=== PATIENT | male | born 1975 | race Caucasian/White ===

== ENCOUNTER 2024-06-04 20:53 | Emergency (ER) | payer OTHER, SELFPAY ==
[2024-06-04 20:55] VITALS: BP 180/110
[2024-06-04 21:13] LABS: % Basophils 0.2 % (0-2); % Eosinophils 2.4 % (0-6); % Immature Granulocytes 0.4 % (0-0.5); % Lymphocytes 19.5 % (20.5-51.1); % Monocytes 6.7 % (1.7-9.3); % Neutrophils 70.8 % (42.2-75.2); Absolute Eosinophils 0.3 10^3/uL (0-0.7); Absolute Monocytes 0.7 10^3/uL (0.1-0.6); Absolute Neutrophils 7.3 10^3/uL (1.4-6.5); Hematocrit 43.3 % (39.0-52.0); Hemoglobin 15.6 g/dL (13.0-18.0); Mean Corpuscular Hgb 32.5 pg (27.0-31.0); Mean Corpuscular Volume 90.2 fL (80.0-94.0); Mean Platelet Volume 9.7 fL (7.4-10.4); Nucleated Red Blood Cells % 0 % (-); Platelet Count 209 10^3/uL (130-400); Red Cell Dist. Width 12.8 % (11.5-14.5); White Blood Cell Count 10.3 10^3/uL (4.8-10.8)
[2024-06-04 21:30] LABS: ALT (SGPT) 43 U/L (0-50); AST (SGOT) 29 U/L (17-59); Albumin 4.8 g/dl (3.5-5.0); Alkaline Phosphatase 95 U/L (38-126); Blood Urea Nitrogen 10 mg/dl (9-20); Carbon Dioxide 28 mmol/L (22-30); Chloride 102 mmol/L (98-107); Glucose 107 mg/dl (70-99); Potassium 4.3 mmol/L (3.5-5.1); Sodium 142 mmol/L (135-145); Total Bilirubin 0.6 mg/dl (0.2-1.3); Total Protein 7.7 g/dl (6.3-8.2); eGFR > 60.00
[2024-06-04 21:31] LABS: Lipase 80 U/L (23-300)
[2024-06-04 21:38] LABS: Troponin I 0.026 ng/ml
--- NOTE | 2024-06-04 22:41 | ED.GENMED ---
History of Present Illness
General
Chief Complaint: Abdominal Pain
Past History
Past History
ED Past Medical History: None
ED Past Surgical History: Orthopedic
Social History
Tobacco: Smoker
Alcohol: Occasional
Drug: None
Personal:
Living: with family
Course
Orders/Labs/Results
Orders:
Orders
06/04/24 20:58
Electrocardiogram (*1) Urgent
Reason for Study: Abdominal Pain
EKG- Treatment ONCE
06/04/24 21:08
Complete Blood Count/With Diff Urgent
Comprehensive Metabolic Panel Urgent
Lipase Urgent
Troponin I Urgent
Abnormal Lab Results
06/04/24
21:08
MCH 32.5 H pg
(27.0-31.0)
Absolute Neuts (auto) 7.3 H 10^3/uL
(1.4-6.5)
Absolute Monos (auto) 0.7 H 10^3/uL
(0.1-0.6)
Lymphocytes % 19.5 L %
(20.5-51.1)
Glucose 107 H mg/dl
(70-99)
06/04/24 21:08
06/04/24 21:08
Vital Signs
Initial and Last Documented VS:
Initial Vital Signs
Temp Pulse Resp BP Pulse Ox
98.1 F 82 24 180/110 98
06/04/24 20:55 06/04/24 20:55 06/04/24 20:55 06/04/24 20:55 06/04/24 20:55
Last Documented Vital Signs
Temp Pulse Resp BP Pulse Ox
98.1 F 82 24 180/110 98
06/04/24 20:55 06/04/24 20:55 06/04/24 20:55 06/04/24 20:55 06/04/24 20:55
MDM/Problems Addressed
Differential Diagnosis Includes:
carotid artery stenosis, R heart strain, stable angina, IN
ED Attending Note
-
Portions of this chart may have been created with voice recognition software.� Occasional wrong word or��sound alike� substitutions may have occurred due to the inherent limitations of voice recognition software.
Discharge Plan
Departure
Prescriptions:
No Action
oxycodone-acetaminophen 5 MG/325 MG tablet
1 tab PO Q4HPRN PRN (Reason: pain) Qty: 5 0RF
Interventions
Interventions:
*Risk Screen - Suicide Last Done: 06/04/24 20:55
*Neglect/Abuse Screening Last Done: 06/04/24 20:55
Discharge Date and Time
Print Language: CROATIAN
[2024-06-05 00:03] VITALS: BMI 29.4
[2024-06-05 00:06] VITALS: BP 155/102
[2024-06-05 00:23] VITALS: BP 157/95
--- NOTE | 2024-06-05 00:35 | ED.GENMED ---
History of Present Illness
General
Chief Complaint: Abdominal Pain
Source: patient
Exam Limitations: none
Time Seen by Provider: 06/05/24 00:14
History of Present Illness
History of Present Illness:
This is a 48 year old male that comes in with c/o upper abd pain. States that he got home from work today and had this upper abd pain. States that he thought he would lay down and it would go away. States that the pain got worse. States that he did
have an appetite today and did not eat lunch or dinner. States that he laid down again after dinner and he felt this tightness at the base of the chest and top of the stomach. States that it was below the ribs. States that he does drink Caffeine 3-4
cups daily. States that he felt Slightly SOB. Denies any fever, chills, chest pain, nausea, vomiting, diarrhea, headache, dizziness, urinary burning.
Past History
Past History
ED Past Medical History: HTN
ED Past Surgical History: Orthopedic
Social History
Tobacco: Smoker
Alcohol: Occasional
Drug: None
Personal: Single
Living: with family
Employment: Employed
Review of Systems
Review of Systems
All Other Systems: ROS reviewed and negative except as documented in HPI and ROS
Constitutional: Reports no symptoms; Denies fever or chills
EENT: Reports no symptoms
Respiratory: Reports trouble breathing (Slight); Denies cough
Cardiac: Reports no symptoms; Denies chest pain
ABD/GI: Reports abdominal pain (Upper abd); Denies nausea, vomiting or diarrhea
: Reports no symptoms; Denies dysuria, frequency or urgency
Musculoskeletal: Reports no symptoms
Skin: Reports no symptoms
Neurological: Reports no symptoms; Denies dizzy or headache
Psychiatric: Reports no symptoms
Phy Exam
General Physical Exam
General Presentation: well appearing and no apparent distress
General age: appears stated age
General Skin: warm and dry
General Habitus: normal
General Mental: alert
General Hydration: appears well hydrated
ENT Exam
ENT Exam: TM's normal, pharynx normal and neck supple
Eye Exam
Eye Exam: EOMI
Cardiovascular Exam
Cardiovascular Exam: regular rate/rhythm, no edema, no murmur and normal peripheral pulses
Pulmonary Exam
Pulmonary Exam: lungs clear, no respiratory distress, no rales, chest non tender, no crackles, no rhonchi, no wheezing and no cough
Gastrointestinal Exam
Gastrointestinal Exam: normal bowel sounds, soft, no organomegaly, no pulsatile mass, non distended and tender (Epigastric and RUQ tenderness with palpation)
Musculoskeletal Exam
Musculoskeletal Exam: full ROM and no edema
Skin Exam
Skin Exam: normal color, warm/dry, no rash and no petechia
Psychiatric Exam
Psychiatric Exam: normal mood/affect
Course
Orders/Labs/Results
Orders:
Orders
06/04/24 20:58
Electrocardiogram (*1) Urgent
Reason for Study: Abdominal Pain
EKG- Treatment ONCE
06/04/24 21:08
Complete Blood Count/With Diff Urgent
Comprehensive Metabolic Panel Urgent
Lipase Urgent
Troponin I Urgent
06/05/24 00:34
CR Chest - 2 Views Urgent
Comment:
Reason For Exam: SOB
US Abdomen Complete/Upper Urgent
Comment:
Reason For Exam: Upper abd pain
06/05/24 00:42
D-Dimer Urgent
Troponin I Urgent
Abnormal Lab Results
06/04/24
21:08
MCH 32.5 H pg
(27.0-31.0)
Absolute Neuts (auto) 7.3 H 10^3/uL
(1.4-6.5)
Absolute Monos (auto) 0.7 H 10^3/uL
(0.1-0.6)
Lymphocytes % 19.5 L %
(20.5-51.1)
Glucose 107 H mg/dl
(70-99)
06/04/24 21:08
06/04/24 21:08
Glucose slightly elevated. Troponin 0.026, Lipase normal at 80
Second Troponin <0.012
Vital Signs
Initial and Last Documented VS:
Initial Vital Signs
Temp Pulse Resp BP Pulse Ox
98.1 F 82 24 180/110 98
06/04/24 20:55 06/04/24 20:55 06/04/24 20:55 06/04/24 20:55 06/04/24 20:55
Last Documented Vital Signs
Temp Pulse Resp BP Pulse Ox
98.1 F 97 20 159/102 94
06/04/24 20:55 06/05/24 02:16 06/05/24 01:45 06/05/24 02:00 06/05/24 02:15
MDM/Problems Addressed
Differential Diagnosis Includes:
Gallbladder disease, Gastritis
MDM/Problems Addressed:
This is a 48 year old male that comes in with c/o upper abd pain. State that this started when he got home from work. State that the pain continued to get worse. States that he had no appetite.
Will check labs, US. Patient refused pain medication.
Back into see patient. patient states that he is feeling better. Explained that his blood work is normal along with his US. Will have patient follow up with the family doctor. Return with any concerns.
Chronic conditions affecting care:
NA
Acute Exacerbation and/or Progression of Chronic Illness:
NA
*Radiology
Radiology exam reviewed: preliminary read by ED provider (Chest- negative for active disease. ), radiology read reviewed (US-NO acute findings. Gallbladder appears normal. no gallstones or sludge in gallbladder. No gallbladder wall thickening or
pericholecystic fluid Negative sonographic Ana Maria's sign per report. CBG measures 5mm in diamter which is within normal limits. Pancreas obscured by bowel gas. Prominent diffuse) and other (US cont- diffuse increased hepatic steatosis, suggesting
steatosis. Bilateral kidneys appear normal and are symmetric. No appreciable free fluid. )
*Pulse Oximetry
Patient hypoxic: no
*EKG
Interpreted by ED Provider?: Yes
Heart Rate: 76
Rhythm: sinus
Grant: left axis deviation
Interval: normal interval
QRS Pattern: normal QRS
Ischemia: no ischemia
*Enrollment Specialist Interpretation
Rate: Enrollment Specialist- N/A
*Critical Care Note
Total Time (30-74mins, 75-104mins- exclusive of procedures): Not Applicable
ED Attending Note
-
Portions of this chart may have been created with voice recognition software.� Occasional wrong word or��sound alike� substitutions may have occurred due to the inherent limitations of voice recognition software.
Discharge Plan
Departure
Patient Disposition: Home (Routine Discharge)
Date of Disposition: 06/05/24
Time of Disposition: 02:34
Patient with high blood pressure during this ER visit?: Yes
Condition: Good
Covid-19: Not Applicable
Discharge Problem:
Acute upper abdominal pain
Instructions: Abdominal Pain, BLOOD PRESSURE
Prescriptions:
No Action
No Current Medications
0
Referrals:
UNKNOWN - PT NOT,INTERVIEWE [Unknown Provider] -
Activity Restrictions/Additional Instructions:
As discussed, your blood work is normal along with your chest x-ray and Ultrasound. Please increase your water intake to 8-8oz glasses daily. Try to decreased fatty foods. Follow up with the family doctor for recheck. IF YOU HAVE INCREASED OR
CHANGING PAIN, OR YOU HAVE ANY OTHER CONCERNS PLEASE RETURN TO THE EMERGENCY ROOM
Interventions
Interventions:
*Risk Screen - Suicide Last Done: 06/04/24 20:55
*General Assessment Last Done: 06/05/24 00:03
*Neglect/Abuse Screening Last Done: 06/04/24 20:55
ED- Fall Risk Assessment Last Done: 06/05/24 00:12
*ED COVID-19 Vaccine History Last Done: 06/05/24 00:03
UZ-Uloimp-Yxhzomnrmb Assessment Last Done: 06/05/24 00:12
ED- Cardiac Assessment Last Done: 06/05/24 00:12
Discharge Date and Time
Print Language: MONGOLIAN
[2024-06-05 01:14] LABS: D-Dimer < 0.27 ug/mlFEU (0.00-0.50)
[2024-06-05 01:23] LABS: Troponin I < 0.012 ng/ml
[2024-06-05 01:30] VITALS: BP 137/91
[2024-06-05 02:00] VITALS: BP 159/102
[2024-06-05 02:39] VITALS: BP 155/94
[2024-06-05 02:40] VITALS: BP 155/94
== END 2024-06-05 02:48 | disposition home or self-care (01) ==
LOC: EMR 20:53
PROVIDERS: Clinical Nurse Specialist Family Health; Emergency Medicine; EMERGENCY PHYSICIAN Student in an Organized Health Care Education/Training Program; FAMILY PHYSICIAN Family Medicine
DX: R10.10 Upper abdominal pain, unspecified (principal); I10 Essential (primary) hypertension; F17.200 Nicotine dependence, unspecified, uncomplicated
CPT/HCPCS: 99285; 71046; 76700; 80053; 83690; 84484; 85025; 85379; 93005

== ENCOUNTER → 2024-12-12 13:52 | Outpatient (REF) | payer OTHER, SELFPAY | LOC: HWRCS 13:52 | PROVIDERS: ATTENDING PHYSICIAN Family Medicine | DX: R94.31 Abnormal electrocardiogram [ECG] [EKG] (principal) | CPT/HCPCS: 93306 ==

== ENCOUNTER 2025-03-24 05:58 | Day surgery (SDC) | payer OTHER, SELFPAY ==
[2025-03-24 06:11] VITALS: BP 131/83
[2025-03-24] MEDS: TYLENOL 1000 MG PO (06:22)
[2025-03-24] MEDS: NORMOSOL-R/PLASMALYTE-A 1000 IV (06:22)
[2025-03-24 06:25] VITALS: BMI 30.1
[2025-03-24 06:29] VITALS: BMI 30.1
--- NOTE | 2025-03-24 06:39 | HP.FOC2 ---
Focused History & Physical
Chief Complaint
HPI:
Chief Complaint: Sebaceous cyst
HPI / Indication for Planned Procedure: 49-year-old male with previously infected sebaceous cyst having undergone I&D at office visits 12/26/2024. He presents today for definitive excision.
Relevant Past Medical History: Other (Hypertension, hypercholesterolemia)
Relevant Social History: Negative
Relevant Family History: Negative
Relevant Past Surgical History: Positive for (Carpal tunnel, I&D sebaceous cyst)
Review of Systems
Review of Pertinent Systems: All Systems Negative
Medication
See Medication form for detailed medications: Yes
Medication List (including Herbals & OTC):
aspirin 81 mg tablet 81 mg PO DAILY 03/19/25
atorvastatin 20 mg tablet 20 mg PO HS 03/19/25
losartan 50 mg tablet 50 mg PO DAILY 03/19/25
multivitamin 1 tab PO DAILY 03/19/25
Medications Reviewed: Yes
Allergies and Reactions
Patient has Allergies: No
Noted Allergies and Reactions:
Allergy/AdvReac Type Severity Reaction Status Date / Time
No Known Allergies Allergy Verified 03/24/25 06:10
Pertinent Physical Exam
All Other Systems: Negative
Head/Neck: Normal
Lungs: Normal
Heart: Normal
Abdomen: Normal
Extremities: Normal
Neurological: Normal
Other: Left upper back/scapular region sebaceous cyst
Diagnosis / Assessment
49-year-old male presenting for scheduled excision of back sebaceous cyst site
Plan / Procedure
Excision sebaceous cyst of the back
Anesthesia/Sedation to be done by Anesthesia Provider: Yes
--- NOTE | 2025-03-24 06:41 | W.SUR.PREOP ---
Pre-Operative Surgical Note
-
I have examined this patient prior to the performance of the scheduled procedure.
The patient's condition is unchanged from the time of the current History and
Physical and the patient is able to undergo the scheduled procedure.
[2025-03-24 07:51] VITALS: BP 125/77
--- NOTE | 2025-03-24 07:55 | W.IMMPOSTOP ---
Addendum entered and electronically signed by Kael Sam MD 03/24/25 08:02:
#[id number]
correction: Monitored anesthetic care NOT GETA
Original Note:
Surgical Immed Post Op Note
-
Primary Surgeon: Kael Sam MD
Assisting Surgeon: Ingrid Combs PA-c
Pre-op Diagnosis: Back sebaceous cyst
Post-op Diagnosis: Back sebaceous cyst
Procedure Performed: Excision sebaceous cyst; 3.5 cm
Anesthesia Type: GETA +1% lidocaine with epinephrine
Specimen / Cultures: Back cyst
Estimated Blood Loss: 4 mL
Complications: None immediate
Operative Findings: Residual sebaceous cyst left upper scapular area of the back. Excised in its entirety. Incision length 3.5 cm multilayer closure with 3-0 Vicryl and 4-0 Monocryl
[2025-03-24 08:00] VITALS: BP 125/84
[2025-03-24 08:15] VITALS: BP 137/89
[2025-03-24 08:30] VITALS: BP 145/90
== END 2025-03-24 08:40 | disposition home or self-care (01) ==
LOC: SDS 05:58
PROVIDERS: ATTENDING PHYSICIAN Surgery
DX: L72.0 Epidermal cyst (principal)
CPT/HCPCS: 11404; 88304